=== PATIENT | female | born 1975 | race Caucasian/White ===

== ENCOUNTER 2021-01-19 10:52 | Outpatient (CLI) | payer SELFPAY ==
--- NOTE | ~2021-01-19 | MM_ITS ---
EXAMINATION: MM scrn matti implant BI w olivia HISTORY: Screening mammogram TECHNIQUE: Craniocaudal and mediolateral oblique 3-D tomosynthesis images with implant displacement a nd synthetic 2-D images were generated. Craniocaudal and mediolateral oblique views of the breasts wi thout implant displacement were obtained using full field digital mammography. CAD analysis was submi tted and interpreted. COMPARISON: No prior mammogram is available for comparison at this institution. BREAST PARENCHYMAL COMPOSITION: The breasts are heterogeneously dense, which may obscure small masses . FINDINGS: Status post bilateral augmentation mammoplasty. Possible 7 mm outer left breast circumscribed mass (craniocaudal Tomosynthesis image 16/41). Questionable 6 mm circumscribed mass central left breast slightly medial to the mid sagittal plane (c raniocaudal Tomosynthesis image 21/41). No suspicious mass of either breast is noted otherwise. Minimal benign calcification. No malignant ca lcification in either breast is evident. No skin thickening or retraction. IMPRESSION: 1. Possible left 6 and 7 mm breast masses 2. Diagnostic left mammogram and left breast ultrasound examination are recommended. BI-RADS Category 0: Incomplete: Needs additional imaging evaluation. Reviewed, dictated and finalized at location A. IMPRESSION: 1. Possible left 6 and 7 mm breast masses 2. Diagnostic left mammogram and left breast ultrasound examination are recomme nded. BI-RADS Category 0: Incomplete: Needs additional imaging evaluation.
== END 2021-01-19 10:53 | disposition home or self-care (01) ==
LOC: ANHIMG 10:57
PROVIDERS: Visit Provider Obstetrics & Gynecology
DX: Z12.31 Encounter for screening mammogram for malignant neoplasm of breast (principal); R92.8 Other abnormal and inconclusive findings on diagnostic imaging of breast
CPT/HCPCS: 77063; 77067

== ENCOUNTER 2021-02-14 13:18 | Outpatient (CLI) | payer OTHER, SELFPAY ==
--- NOTE | ~2021-02-14 | MMUS_ITS ---
EXAMINATION: MM diag matti implant LT w olivia, US breast LT limited HISTORY: Left breast asymmetries on screening mammogram TECHNIQUE: Craniocaudal, mediolateral, and mediolateral oblique 3-D tomosynthesis images with implant displacement of the left breast were performed and synthetic 2-D images were generated. Mediolatera l view of the left breast without implant displacement were obtained using full field digital mammogr aphy. CAD analysis was submitted and interpreted. High resolution limited left breast ultrasound was performed. COMPARISON: 01/19/2021, 11/17/2016, 11/10/2016 BREAST PARENCHYMAL COMPOSITION: The breasts are heterogeneously dense, which may obscure small masses . FINDINGS: MAMMOGRAPHIC FINDINGS: There is a return to baseline fibroglandular appearance with spot compression of the left breast in t he area questioned on screening mammogram. No suspicious mass, calcification, or architectural distor tion are identified. ULTRASOUND: There is 7 mm x 2 mm bilobed cyst at the 1:30 location 3 cm from the nipple. A 7 mm x 3 mm oval, circ umscribed, parallel, hypoechoic mass with posterior acoustic enhancement and no internal vascularity at the 2:00 location 3 cm from the nipple. IMPRESSION: 1. Probably benign sonographically detected left breast mass at the 2:00 location. 2. Recommend 6 month follow-up targeted left breast ultrasound. BI-RADS category 3, probably benign findings. Reviewed, dictated and finalized at location A. IMPRESSION: 1. Probably benign sonographically detected left breast mass at the 2:00 locati on. 2. Recommend 6 month follow-up targeted left breast ultrasound. BI-RADS category 3, probably benign findings.
== END 2021-02-14 13:19 | disposition home or self-care (01) ==
LOC: ANHIMG 13:25
PROVIDERS: Visit Provider Obstetrics & Gynecology
DX: R91.8 Other nonspecific abnormal finding of lung field (principal)
CPT/HCPCS: 76642; 77061; 77065; G0279

== ENCOUNTER 2021-02-22 12:39 | Outpatient (CLI) | payer OTHER, SELFPAY ==
[2021-02-22 13:11] LABS: Hematocrit 41.7 % (37.0-47.0); Hemoglobin 13.9 g/dL (12.0-15.0); Mean Corpuscular HGB Conc 33.3 g/dl (32-36); Mean Corpuscular Hemoglobin 29.4 pg (26-34); Mean Corpuscular Volume 88.2 fl (80-100); Mean Platelet Volume 10.2 fl (7.4-10.4); Platelet Count Result 240 k/mm3 (150-375); Red Blood Count 4.73 M/mm3 (4.2-5.4); Red Cell Distribution Width 11.9 % (11.5-14.5); White Blood Count 7.2 K/mm3 (4.5-10.0)
[2021-02-22 13:25] LABS: Alanine Aminotransferase 17 U/L (4-35); Albumin Level 4.5 g/dL (3.5-5.1); Alkaline Phosphatase 49 U/L (38-126); Anion Gap 8 mmol/L (8-16); Aspartate Amino Transferase 22 U/L (14-36); Bilirubin,Total 0.8 mg/dL (0.2-1.3); Blood Urea Nitrogen 12 mg/dL (7-17); Calcium 9.2 mg/dL (8.4-10.2); Carbon Dioxide 23 mmol/L (22-30); Chloride 107 mmol/L (98-107); Estimated Glomerular Filt Rate > 60; Glucose 95 mg/dL (65-110); Potassium 3.7 mmol/L (3.4-5.0); Sodium 138 mmol/L (137-145)
[2021-02-22 13:28] LABS: CRP < 0.5 mg/dL (<1.0)
[2021-02-22 13:56] LABS: Thyroid Stimulating Hormone 0.582 uIU/mL (0.465-4.680)
[2021-02-22 14:01] LABS: Erythrocyte Sedimentation Rate 8 mm/hr (0-20)
[2021-02-25 13:01] LABS: Tissue Transglutaminase IgG Ab 1 U/mL (<6)
[2021-02-28 00:13] LABS: Tissue Transglutaminase IgA Ab 1 U/mL (<4)
== END 2021-02-22 12:40 | disposition home or self-care (01) ==
PROVIDERS: Visit Provider Nurse Practitioner Family
DX: R19.7 Diarrhea, unspecified (principal)
CPT/HCPCS: 36415; 80053; 83516; 84443; 85027; 85652; 86140

== ENCOUNTER 2021-02-23 12:49 | Outpatient (CLI) | payer OTHER, SELFPAY | END 2021-02-23 12:50 | disposition home or self-care (01) | PROVIDERS: Visit Provider Nurse Practitioner Family | DX: R19.7 Diarrhea, unspecified (principal) | CPT/HCPCS: 87045; 87177; 87209; 87427; 89055 ==

== ENCOUNTER 2021-04-10 09:09 | Outpatient (CLI) | payer OTHER, SELFPAY ==
--- NOTE | ~2021-04-10 | XR_ITS ---
XR abdomen/kub 1V DATE: 04/10/2021 09:31 INDICATION: Microscopic hematuria TECHNIQUE: AP projection, 2 views COMPARISON: None FINDINGS: No apparent urinary tract calcified calculus is noted. Noncontrast CT abdomen pelvis examin ation is more sensitive for detection of urinary tract calculi. No visceromegaly is detected. The psoas shadows are intact. The bowel gas pattern is unremarkable, wi thout evidence of obstruction. Included skeletal structures are unremarkable. IMPRESSION: No significant abnormality Reviewed, dictated and finalized at [facility]. Reviewed, dictated and finalized at location B. IMPRESSION: No significant abnormality
== END 2021-04-10 09:10 | disposition home or self-care (01) ==
LOC: ANHIMG 09:13
PROVIDERS: Visit Provider Urology
DX: R31.29 Other microscopic hematuria (principal)
CPT/HCPCS: 74018

== ENCOUNTER → 2022-07-28 09:01 | Outpatient (CLI) | payer SELFPAY ==
--- NOTE | ~2022-07-28 | US_ITS ---
EXAMINATION: US pelvic complete w TV DATE: 07/28/2022 09:31 INDICATION: Leiomyoma of uterus, unspecified. TECHNIQUE: Multiple transabdominal and transvaginal sonographic images of the pelvis were obtained. COMPARISON: None. FINDINGS: TRANSABDOMINAL ULTRASOUND: The uterus measures 9.3 x 5.4 x 5.9 cm. There is no free fluid in the pelvis. TRANSVAGINAL ULTRASOUND: The endometrial complex measures 8 mm in thickness. There is a 2.2 cm subserosal fibroid posteriorly. There is a 2.0 cm nabothian cyst in the cervix. The right ovary is not visualized. The left ovary me asures 3.0 x 2.9 x 3.1 cm. IMPRESSION: 1. 2.2 cm uterine fibroid. Reviewed, dictated and finalized at location A. FILLER IMPRESSION: 1. 2.2 cm uterine fibroid.
== END ==
PROVIDERS: PCP Obstetrics & Gynecology; Visit Provider Obstetrics & Gynecology
DX: D25.9 Leiomyoma of uterus, unspecified (principal)
CPT/HCPCS: 76830; 76856

== ENCOUNTER 2022-08-23 00:44 | Day surgery (SDC) | payer BC, SELFPAY ==
[2022-08-23] VITALS (31 sets, daily range): BP systolic 84–130; BP diastolic 46–90; PULSE 51–92; RESP 10–20; TEMP 36.6–37; O2SAT 94–100
--- NOTE | ~2022-08-23 | CT_ITS ---
EXAMINATION: CT abdomen pelvis w con DATE: 08/23/2022 03:06 INDICATION: Epigastric abdominal pain TECHNIQUE: Computed tomography (CT) of the abdomen and pelvis was performed with 100 CC Omnipaque 350 intravenous contrast. Automated exposure control and iterative reconstruction technique were employe d. Exam dose: 273.03 mGy-cm total exam DLP. COMPARISON: 07/28/2022 FINDINGS: Normal heart size. No pericardial or pleural effusion. The liver, gallbladder, bile ducts, pancreas and pancreatic duct are unremarkable. Indeterminate approximately 1.2 cm area of diminished attenuation at the periphery of the superolater al aspect of the spleen. Normal morphology of the adrenal glands. No renal mass lesion or urinary tract calculus or hydrourete ronephrosis is detected. Normal caliber of the abdominal aorta. No intraperitoneal or retroperitoneal or pelvic mass lesion or adenopathy or ascites. Retroverted uterus. 1.4 cm cyst at lesion, corresponding to a uterine cervical nabothian cyst demonstrated on 07/28/2022 p elvic ultrasound examination. Bilateral prominent adnexal veins. Possible blind ending mildly dilated appendix is identified in the right pelvic area but this is not certain. Clinical correlation is advised Skeletal structures are unremarkable. . IMPRESSION: Possible acute appendicitis Reviewed, dictated and finalized at [facility]. Reviewed, dictated and finalized at location A. ACCOUNT REPRESENTATIVE IMPRESSION: Possible acute appendicitis
--- NOTE | 2022-08-23 01:16 | ED.GENADULT ---
HPI - General Adult General Chief complaint: Abdominal Pain <Rocael Osborne MD - Last Filed: 08/23/22 07:35> Stated complaint: abd pain <Rocael Osborne MD - Last Filed: 08/23/22 07:35> Time Seen by Provider: 08/23/22 01:02 <Rocael Osborne MD - Last Filed: 08/23/22 07:35> History of Present Illness HPI narrative: Patient 46-year-old female who presents emergency department with chief complaint of abdominal pain. Patient reports that she started having pain in the epigastric and periumbilical region around 3 PM today and the patient reports she is attempted multiple medications [id number] to try to counteract the pain, but has had no improvement in her symptoms. The patient reports she is had nausea no vomiting denies diarrhea. The patient reports just history of a D&C from abdominal surgery perspective. The patient does report that she has irregular periods but has been told that she is perimenopausal. Patient reports symptoms or not improved by anything. <Rocael Osborne MD - Last Filed: 08/23/22 07:35> Related Data Home medications: Home Medications Medication Instructions Recorded Confirmed calcium carbonate 600 mg calcium 600 mg PO DAILY 01/15/22 01/15/22 (1,500 mg) tablet (Calcium) collagen .Route 01/15/22 01/15/22 magnesium 200 mg tablet 200 mg PO DAILY 01/15/22 01/15/22 mecobalamin (vitamin B12) 1,000 1,000 mcg PO DAILY 01/15/22 01/15/22 mcg chewable tablet multivitamin 1 tablet PO DAILY 01/15/22 01/15/22 <Rocael Osborne MD - Last Filed: 08/23/22 07:35> Allergies/adverse reactions: Allergies Allergy/AdvReac Type Severity Reaction Status Date / Time adhesive tape AdvReac Rash Verified 08/23/22 06:51 <Rocael Osborne MD - Last Filed: 08/23/22 07:35> Review of Systems Review of Systems: A 10 system review of systems was completed on the patient and is negative except for what is stated in the HPI. Nursing and ancillary documentation was reviewed. <Rocael Osborne MD - Last Filed: 08/23/22 07:35> PMFSH Past Medical History Medical History: Medical History Diarrhea History of vaginal delivery x 3 <Rocael Osborne MD - Last Filed: 08/23/22 07:35> Surgical History Surgical History: Surgical History History of breast augmentation breast implants 08/2021, breast reduction History of dilation and curettage 1995 History of endometrial ablation 2018 <Rocael Osborne MD - Last Filed: 08/23/22 07:35> Family History Family History: Family History Grandparent Heart disease Malignant neoplasm of prostate <Rocael Osborne MD - Last Filed: 08/23/22 07:35> Social History Social History: Social History Smoking status: Former smoker Alcohol intake: current Substance use: never <Rocael Osborne MD - Last Filed: 08/23/22 07:35> Exam Narrative: GENERAL: Well-appearing, well-nourished, and in no acute distress. HEAD: Normocephalic, atraumatic. EYES: PERRLA and EOMI. ENT: Nares clear, no rhinorrhea or epistaxis. Mucous membranes moist. NECK: Supple. CHEST: Clear to auscultation. No respiratory distress. HEART: Regular rate and rhythm. No murmur heard. Normal peripheral pulses. ABDOMEN: Soft, tender in the epigastric and periumbilical region, nondistended, normal active bowel sounds. EXTREMITIES: Normal range of motion. No edema. SKIN: Warm, dry, no rash. NEURO: No focal deficits. Alert and oriented x3. PSYCH: Normal mood and affect. <Rocael Osborne MD - Last Filed: 08/23/22 07:35> Course Course Emergency Course: I discussed case with Dr. Clemons. Patient will
[2022-08-23] MEDS: SODIUM CHLORIDE 0.9% IV 1,000 ML 999 ML IV CONT ×3 (01:24→07:37)
[2022-08-23] MEDS: ONDANSETRON INJ 4 MG/2 ML VIAL IV PUSH ×2 (01:24→11:33)
[2022-08-23] MEDS: HYDROmorphone HCL INJ (*CRX) 1 MG/ML SYR IV PUSH ×2 (01:24→03:53)
[2022-08-23 02:24] LABS: Basophils Percent Auto 0.2 % (0.2-1.2); Eosinophils Percent Auto 0.1 % (0-4.4); Hematocrit 35.1 % (37.0-47.0); Hemoglobin 11.8 g/dL (12.0-15.0); Immature Granulocyte Absolute 0.02 K/mm3 (0.00-0.031); Immature Granulocyte Percent A 0.2 % (0-0.5); Lymphocytes Absolute Auto 1.82 K/mm3 (0.9-3.2); Mean Corpuscular HGB Conc 33.6 g/dl (32-36); Mean Corpuscular Hemoglobin 28.9 pg (26-34); Monocytes Absolute Auto 0.5 K/mm3 (0.1-0.6); Monocytes Percent Auto 4.7 % (2.6-8.5); Neutrophils Absolute Auto 7.2 K/mm3 (1.3-6.7); Neutrophils Percent Auto 75.8 % (45.5-73.1); Platelet Count Result 207 k/mm3 (150-375); Red Blood Count 4.08 M/mm3 (4.2-5.4); Red Cell Distribution Width 12.1 % (11.5-14.5); White Blood Count 9.6 K/mm3 (4.5-10.0)
[2022-08-23 02:37] LABS: Alanine Aminotransferase 20 U/L (6-35); Albumin Level 4.2 g/dL (3.5-5.1); Alkaline Phosphatase 36 U/L (38-126); Anion Gap 6 mmol/L (8-16); Aspartate Amino Transferase 22 U/L (14-36); Bilirubin,Total 0.4 mg/dL (0.2-1.3); Blood Urea Nitrogen 15 mg/dL (7-17); Calcium 8.5 mg/dL (8.4-10.2); Carbon Dioxide 26 mmol/L (22-30); Chloride 106 mmol/L (98-107); Estimated CRCL calculation 91 ml/min; Estimated Glomerular Filt Rate > 60; Glucose 112 mg/dL (65-110); Lipase 49 U/L (23-300); Potassium 3.2 mmol/L (3.4-5.0); Sodium 138 mmol/L (137-145)
[2022-08-23 03:00] LABS: Appearance Urine Cloudy (Clear); Bacteria Urine None Seen /hpf; Bilirubin Urine Negative (Negative); Blood Urine 2+ (Negative); Color Urine Yellow (Yellow); Glucose Urine UA Negative (Negative); Ketones Urine Negative (Negative); Leukocyte Esterase Ur Negative LEU/UL (Negative); Nitrate Urine Negative (Negative); Non Pathogenic Casts 0-2; Protein Urine Negative (Negative); RBC Urine 21-50 /hpf (0-2); Squamous Epithelial Cell Urine None seen /hpf (Few); Urobilinogen Urine 0.2 mg/dL (<2.0); WBC Urine 0-5 /hpf
[2022-08-23 03:18] LABS: Add Urine Microscopic? YES
--- NOTE | 2022-08-23 07:10 | PC.NURSE ---
Report given to Lupis Lawson RN
--- NOTE | 2022-08-23 08:06 | WPDANESEPP ---
Anes - Eval Pre Procedure Procedure: Laparoscopic appendectomy Date/Time: 08/23/22 08:06 Surgeon: Deonte Preop Diagnosis: acute appendicitis Pre Op Diagnosis: abd pain Patient Data Age: 46 Gender: F Height: 1.65 m Weight: 58.97 kg Last Vital Signs Temp 98.2 F 08/23/22 07:38 Pulse 78 08/23/22 07:38 Resp 16 08/23/22 07:38 BP 96/67 L 08/23/22 07:38 Pulse Ox 100 08/23/22 07:38 O2 Del Method Room Air 08/23/22 00:47 Allergies Allergy/AdvReac Type Severity Reaction Status Date / Time adhesive tape AdvReac Rash Verified 08/23/22 06:51 Home Medications Medication Instructions Recorded Confirmed Type calcium carbonate 600 mg calcium 600 mg PO DAILY 01/15/22 01/15/22 History (1,500 mg) tablet (Calcium) collagen .Route 01/15/22 01/15/22 History magnesium 200 mg tablet 200 mg PO DAILY 01/15/22 01/15/22 History mecobalamin (vitamin B12) 1,000 1,000 mcg PO DAILY 01/15/22 01/15/22 History mcg chewable tablet multivitamin 1 tablet PO DAILY 01/15/22 01/15/22 History Laboratory Tests 08/23/22 08/23/22 08/23/22 02:15 02:15 02:45 WBC 9.6 K/mm3 K/mm3 (4.5-10.0) RBC 4.08 M/mm3 L M/mm3 (4.2-5.4) Hgb 11.8 g/dL L g/dL (12.0-15.0) Hct 35.1 % L % (37.0-47.0) MCV 86.0 fl fl (80-100) MCH 28.9 pg pg (26-34) MCHC 33.6 g/dl g/dl (32-36) RDW 12.1 % % (11.5-14.5) Plt Count 207 k/mm3 k/mm3 (150-375) MPV 10.0 fl fl (7.4-10.4) Immature Gran % (Auto) 0.2 % % (0-0.5) Neut % (Auto) 75.8 % H % (45.5-73.1) Lymph % (Auto) 19.0 % % (18.3-44.2) [place] % (Auto) 4.7 % % (2.6-8.5) Eos % (Auto) 0.1 % % (0-4.4) Baso % (Auto) 0.2 % % (0.2-1.2) Lymph # (Auto) 1.82 K/mm3 K/mm3 (0.9-3.2) [place] # (Auto) 0.5 K/mm3 K/mm3 (0.1-0.6) Eos # (Auto) 0.0 K/mm3 K/mm3 (0-0.3) Baso # (Auto) 0.0 K/mm3 K/mm3 (0.0-0.1) Abs Immat Gran (auto) 0.02 K/mm3 K/mm3 (0.00-0.031) Absolute Neuts (auto) 7.2 K/mm3 H K/mm3 (1.3-6.7) Absolute Nucleated RBC 0.0 K/mm3 K/mm3 (0.0-0.012) Nucleated RBC % 0.0 % % (0.0-0.2) Sodium 138 mmol/L mmol/L (137-145) Potassium 3.2 mmol/L L mmol/L (3.4-5.0) Chloride 106 mmol/L mmol/L (98-107) Carbon Dioxide 26 mmol/L mmol/L (22-30) Anion Gap 6 mmol/L L mmol/L (8-16) BUN 15 mg/dL mg/dL (7-17) Creatinine 0.60 mg/dL L mg/dL (0.7-1.0) Estim Creat Clear Calc 91 ml/min ml/min Estimated GFR > 60 (59 - ) Glucose 112 mg/dL H mg/dL (65-110) Calcium 8.5 mg/dL mg/dL (8.4-10.2) Total Bilirubin 0.4 mg/dL mg/dL (0.2-1.3) AST 22 U/L U/L (14-36) ALT 20 U/L U/L (6-35) Alkaline Phosphatase 36 U/L L U/L (38-126) Total Protein 7.0 g/dL g/dL (6.3-8.2) Albumin 4.2 g/dL g/dL (3.5-5.1) Lipase 49 U/L U/L (23-300) Urine Color Yellow (Yellow) Urine Appearance Cloudy H (Clear) Urine pH 7.0 (5.0-9.0) Ur Specific [place] 1.020 (1.001-1.035) Urine Protein Negative mg/dL mg/dL (Negative) Urine Glucose (UA) Negative mg/dL mg/dL (Negative) Urine Ketones Negative mg/dL mg/dL (Negative) Ur Blood (Man) 2+ H (Negative) Urine Nitrate Negative (Negative) Urine Bilirubin Negative (Negative) Urine Urobilinogen 0.2 mg/dL mg/dL (<2.0) Leukocyte Esterase Rfl Negative TONIO/UL TONIO/UL (Negative) Urine RBC 21-50 /hpf H /hpf (0-2) Urine WBC 0-5 /hpf /hpf Ur Squamous Epith Cells None seen /hpf /hpf (Few) Urine Bacteria None seen /hpf /hpf Urine Casts 0-2 : patient
[2022-08-23] MEDS: LACTATED RINGERS 1,000 ML 30 ML IV CONT ×2 (09:30→12:15)
--- NOTE | 2022-08-23 09:35 | P.PNAN_ITS ---
Anes - Eval Final PreProcedure Day of Procedure 08/23/22 09:35 Patient weight: normal Heart: regular rate and rhythm Lungs: clear to auscultation Airway: Mallampati scale class II Neurological: alert and oriented Last oral intake: >/= 8 hours ASA classification: II Emergent: no Anesthetic plan: proceed Anesthesia type and monitoring: general ETT and standard monitoring Results Review: All pre-operative results and documents have been reviewed as part of the pre- operative evaluation. Informed Consent: The patient's anesthetic plan and its attendant risks and benefits were discussed with the patient/family/POA. Questions were solicited and answers provided to the satisfaction of the patient/family/POA.
[2022-08-23] MEDS: BUPIVACAINE/EPINEPHRINE 0.5% 10 ML VIAL 20 ML INFILTRATE (10:17)
--- NOTE | 2022-08-23 10:24 | W.PM.PROC2 ---
Procedure Note - Detailed Date of Procedure 08/23/22 Pre-op Diagnosis Appendicitis Post-op Diagnosis Same Procedure Performed Laparoscopic appendectomy Surgeon Bean Clemons MD Dandy Operator Guilherme MENDOZA Anesthesia General and Local Indications Patient started having upper abdominal pain and nausea yesterday afternoon. This got worse and she came to the emergency room. Eventually the pain moved to the right lower quadrant. White blood cell count was 9600. CT scan showed acute appendicitis. She is taken to surgery now for laparoscopic appendectomy. Findings Acute non perforated appendicitis Description of Procedure Patient was taken to surgery and induced into general anesthesia. The abdomen is prepped and draped. Trocars were placed in usual fashion using [employer] optical trocars and a 5 mm camera. Patient was placed in Trendelenburg. We were able to find the appendix. It was wrapped in some inflammatory adhesions. Once the adhesions were taken down the appendix was obviously inflamed particularly it in its midportion and distal aspect. The base looked fairly normal. We then dissected in the mesoappendix and cauterized the appendiceal artery thoroughly. It was dissected and divided. We then dissected the rest of the mesoappendix and skeletonized the appendix at its base. Appendix was then ligated at its base with a Vicryl endoloop. It was amputated just above the ligature and the mucosa of the appendiceal stump was cauterized. The appendix was placed immediately in an Endo-Catch bag. It was extricated through the 10 11 left lower quadrant port. We replaced the 10 11 trocar and reviewed the areas of dissection in the appendiceal stump. All looked good. There was no evidence of bleeding or other problems. We then evacuated CO2 and removed the trocar sleeves. Skin wounds were closed with subcuticular 4-0 Monocryl skin suture. Wounds were dressed with Exofin surgical adhesive. The patient was awakened and taken to recovery in good condition. Sponge and needle counts were correct x2. Estimated Blood Loss -5 Drains No Packing No Pathology Yes (Appendix) Complications No immediate complications Condition Stable Disposition PACU [facility] Billing Surgery - Charge Forward: Surgery Billing (Laparoscopic appendectomy)
[2022-08-23] MEDS: oxyCODONE HCL (*CRX) 5 MG TAB IR PO (11:50)
== END 2022-08-23 12:49 | disposition home or self-care (01) ==
LOC: ANHED 07:51 → ANHSURGERY 09:17
PROVIDERS: Emergency Medicine; Emergency Provider Emergency Medicine; PCP Obstetrics & Gynecology; Visit Provider Surgery
PROC: 0DTJ4ZZ Resection of Appendix, Percutaneous Endoscopic Approach (ICD-10-PCS; CPT 44970; principal; 2022-08-23 09:00)
DX: K35.80 Unspecified acute appendicitis (principal); Z87.891 Personal history of nicotine dependence
CPT/HCPCS: 44970; 36415; 74177; 80053; 81001; 81025; 83690; 85025; 88304; 96361; 96365; 96367; 96375; 99285; A9270; J0131; J0330; J1170; J2250; J2405; J2543; J2704; J2710; J3010; J7030; J7120; Q9967

== ENCOUNTER 2022-09-19 14:32 | Outpatient (CLI) | payer BC, SELFPAY ==
--- NOTE | 2022-08-23 08:32 | PM.SD2 ---
Same Day Admit/Disch: HPI History of Present Illness Chief complaint: Abdominal pain Narrative: Vero Bolton is a 46 year old female who began having some upper midline abdominal pain yesterday afternoon. The pain moved to the right lower quadrant. She came to the emergency room where she was noted to have tenderness in the right lower quadrant. Her white blood cell count was 9600. She had a CT scan which showed a 10 mm fluid-filled appendix with periappendiceal stranding consistent with early acute appendicitis. She is taken to surgery now for laparoscopic appendectomy. [facility] Past Medical History Medical History Diarrhea History of vaginal delivery x 3 Surgical History Surgical History History of breast augmentation breast implants 08/2021, breast reduction History of dilation and curettage 1995 History of endometrial ablation 2018 Family History Family History Grandparent Heart disease Malignant neoplasm of prostate Social History Social History Smoking status: Former smoker Alcohol intake: current Substance use: never Same Day Admit/Disch: Med Pre-admit Medications Home Medications Medication Instructions Recorded Confirmed Type calcium carbonate 600 mg calcium 600 mg PO DAILY 01/15/22 01/15/22 History (1,500 mg) tablet (Calcium) collagen .Route 01/15/22 01/15/22 History magnesium 200 mg tablet 200 mg PO DAILY 01/15/22 01/15/22 History mecobalamin (vitamin B12) 1,000 1,000 mcg PO DAILY 01/15/22 01/15/22 History mcg chewable tablet multivitamin 1 tablet PO DAILY 01/15/22 01/15/22 History ketorolac 10 mg tablet 10 mg PO Q6H 4 days #16 tabs 08/23/22 Rx oxycodone-acetaminophen 5 mg-325 0.5 - 1 tablet PO Q6H PRN pain #10 08/23/22 Rx mg tablet tabs Exam Const: General: comfortable, no acute distress, alert and awake HENMT: Head: normocephalic and atraumatic Mouth: Yes Normal oral and palatal mucosa present Eyes: Conjunctivae: conjunctivae normal Pupils: Equal, round and reactive pupils present EOM: EOMs intact bilaterally Neck: Neck: normal visual inspection, no lymphadenopathy and nontender Resp: Effort & Inspection: normal respiratory effort Auscultation: clear to auscultation bilaterally Cardio: Rate: regular rate Rhythm: regular rhythm Heart sounds: no gallops, no murmurs and no rubs GI: Inspection: non-distended and no scars GI Palp: Yes Soft to palpation, Yes Tenderness to palpation present (GI) (Right lower quadrant with guarding), Yes Guarding due to palpation present (GI), No Hepatomegaly present, No Splenomegaly present, No Hernia present, No Palpable mass present and No Ascites present Auscultation: normal bowel sounds Skin: Lesions: no lesions Rashes: no rashes Neuro: General: no focal motor deficits and CN's II-XI intact bilaterally Cranial nerves: Yes Equal, round and reactive pupils present, Yes Bilaterally intact EOM present, Yes facial symmetry and Yes Midline tongue present Speech: normal speech Motor exam (neuro): 5/5 motor strength present throughout and Motor abnormalities not present Extrem: General: no clubbing, cyanosis or edema and edema Psych: Affect: normal affect Thought process: Normal thought process present Insight: Good insight present (Psych) DS: Data Imaging Attestation: I personally reviewed and interpreted this imaging study as follows: (CT scan abdomen and pelvis) My impression: Early appendicitis Radiologist's impression: Not yet formally read. Tele radiology suggests acute appendicitis. DS: Summary Time Spent with Patient Time attestation: Total time spent providing and/or coordinating discharge services: DS: Admitting Diagnosis Discharge Date 08/23/2022 Admitting Diagnosis Early acute appendicit
--- NOTE | 2022-08-23 08:37 | WPDHPUPDATE1 ---
History and Physical Update Update Date/Time: 08/23/22 08:37 History and Physical has been reviewed, including an updated exam of the patient. There are NO changes in the patient's condition. Risks, benefits, and alternatives have been discussed and questions answered. Patient agrees to proceed with procedure.
--- NOTE | ~2022-09-19 | MM_ITS ---
EXAMINATION: MM screening matti BI w olivia HISTORY: Screening TECHNIQUE: Craniocaudal and mediolateral oblique 3-D tomosynthesis images were obtained and synthetic 2-D images were generated. CAD analysis was submitted and interpreted. COMPARISON: No prior mammogram is available for comparison at this institution. BREAST PARENCHYMAL COMPOSITION: The breasts are heterogeneously dense, which may obscure small masses . FINDINGS: There is distortion inferiorly in both breasts, consistent with breast implant explantation . There is no evidence of suspicious mass, calcification, or architectural distortion to suggest yazan gnancy in either breast. There has been no suspicious interval change. IMPRESSION: 1. No mammographic evidence of malignancy. 2. Recommend routine screening mammography in one year. BI-RADS Category 1: Negative Reviewed, dictated and finalized at location A.
== END 2022-09-19 14:33 | disposition home or self-care (01) ==
LOC: ANHIMG 14:34
PROVIDERS: PCP Obstetrics & Gynecology; Visit Provider Obstetrics & Gynecology
DX: Z12.31 Encounter for screening mammogram for malignant neoplasm of breast (principal)
CPT/HCPCS: 77063; 77067

== ENCOUNTER 2023-04-27 00:30 | Day surgery (SDC) | payer BC, SELFPAY ==
[2023-04-15 13:50] VITALS: BMI 21.5
[2023-04-27 06:44] VITALS: BP 105/67; PULSE 82; RESP 18; TEMP 36.2; O2SAT 98
[2023-04-27] MEDS: LACTATED RINGERS 1,000 ML 150 ML IV CONT (07:02)
--- NOTE | 2023-04-27 07:47 | PM.HPGS ---
History of Present Illness History of Present Illness Consent: Risks, benefits, and alternatives have been discussed and questions answered. Patient agrees to proceed with procedure. Chief complaint: neoplasm screening Narrative: Vero Bolton is a 47 year old female here for screening colonoscopy, last one about 13 years ago for GI issues Review of Systems Constitutional: Constitutional: Denies headache(s) and Denies weakness Eyes: Eyes: Denies blurry vision ENT: Reports Normal hearing present, Denies headache(s) and Denies neck pain Cardiovascular: Cardiovascular: Denies chest pain and Denies dyspnea Respiratory: Respiratory: Denies dyspnea Gastrointestinal: Gastrointestinal: Reports no additional gastrointestinal complaints Genitourinary: Genitourinary: Denies dysuria Musculoskeletal: Musculoskeletal: Denies neck pain Integumentary/Breasts: Skin/Breast: Denies dry skin Neurologic: Reports Normal hearing present, Denies headache(s) and Denies weakness Psychiatric: Psychiatric: Denies anxiety Endocrine: Endocrine: Denies change in body appearance Hematologic/Lymphatic: Hematologic/Lymphatic: Denies easy bleeding Allergic/Immunologic: Allergic/Immunologic: Denies urticaria PMFSH Past Medical History Medical History (Updated 04/27/23 @ 07:48 by Mitul Haynes MD) Colon cancer screening Diarrhea History of vaginal delivery x 3 Surgical History Surgical History History of breast augmentation breast implants 08/2021, breast reduction History of dilation and curettage 1996 History of endometrial ablation 2019 History of laparoscopic appendectomy 08/23/2022 - Laparoscopic appendectomy Family History Family History Grandparent Heart disease Malignant neoplasm of prostate Social History Social History Smoking status: Never smoker Alcohol intake: current Drinks per week: 10 Substance use: never Substance use type: does not use Lack of Transportation: No Lack of Food: Never True Current Housing: I Have Housing Concerned About Future Housing: No Difficulty Paying Gas/Electric Bills: Decline to Answer Difficulty Paying for Meds: Decline to Answer Currently Unemployed: No Education: High School Diploma/GED Difficulty w/ Childcare or Family Care: No Living arrangements: with family Occupation/Education: occupation Gender identity (if verbalized by the patient): Female Sexual Orientation (if Verbalized by the Patient): Straight or Heterosexual Spiritual care concerns: No Meds Home Medications and Allergies Home Medications Medication Instructions Recorded Confirmed Type magnesium 200 mg tablet 200 mg PO DAILY 01/15/22 04/15/23 History mecobalamin (vitamin B12) 1,000 1,000 mcg PO DAILY 01/15/22 04/15/23 History mcg chewable tablet multivitamin 1 tablet PO DAILY 01/15/22 04/15/23 History Allergies Allergy/AdvReac Type Severity Reaction Status Date / Time adhesive tape AdvReac Rash Verified 04/27/23 06:44 Vital Signs Vital Signs - 24 hr 04/27/23 06:44 Temperature 97.1 F L Pulse Rate 82 Respiratory Rate 18 Blood Pressure 105/67 Pulse Oximetry 98 Oxygen Delivery Room Air Exam Const: General: comfortable and no acute distress HENMT: Face/Nose/Sinus: Normal nares present Eyes: General: appearance normal, both eyes and all related structures Neck: Neck: no JVD Resp: Auscultation: clear to auscultation bilaterally Cardio: Rate: regular rate Rhythm: regular rhythm GI: Inspection: non-distended GI Palp: Yes Soft to palpation Skin: General skin exam: normal color Neuro: General: gait normal Speech: normal speech Extrem: General: normal to inspection Psych: Mental Status: mental status grossly normal Assessment and Plan As
[2023-04-27 08:01] VITALS: BP 85/52; PULSE 72; RESP 19; O2SAT 100
[2023-04-27 08:11] VITALS: BP 99/64; PULSE 68; RESP 22; O2SAT 100
[2023-04-27 08:21] VITALS: BP 102/69; PULSE 66; RESP 25; O2SAT 100
== END 2023-04-27 08:25 | disposition home or self-care (01) ==
PROVIDERS: Visit Provider Internal Medicine Gastroenterology
PROC: 0DJD8ZZ Inspection of Lower Intestinal Tract, Via Natural or Artificial Opening Endoscopic (ICD-10-PCS; CPT 45378; principal; 2023-04-27 08:00)
DX: Z12.11 Encounter for screening for malignant neoplasm of colon (principal); Z80.42 Family history of malignant neoplasm of prostate
CPT/HCPCS: 45378; J2704; J7120

== ENCOUNTER 2024-08-08 13:54 | Outpatient (CLI) | payer OTHER, SELFPAY ==
--- NOTE | ~2024-08-08 | MM_ITS ---
EXAMINATION: MM screening matti BI w olivia HISTORY: Screening TECHNIQUE: Craniocaudal and mediolateral oblique 3-D tomosynthesis images were obtained and synthetic 2-D images were generated. CAD analysis was submitted and interpreted. COMPARISON: Comparison to multiple prior studies sequentially, with oldest reviewed study dated 01/19. BREAST PARENCHYMAL COMPOSITION: Dense: The breasts are heterogeneously dense, which may obscure small masses FINDINGS: There is no evidence of suspicious mass, calcification, or architectural distortion to sugg est malignancy in either breast. There has been no suspicious interval change. IMPRESSION: 1. No mammographic evidence of malignancy. 2. Recommend routine screening mammography in one year. BI-RADS Category 1: Negative Reviewed, dictated and finalized at location B. ORK RELAY TESTER
--- OUTSIDE RECORDS SUMMARY | 2024-08-08 14:10 | XMS_ITS | Clinical Summary ---
Author Organization [facility] Address [address] [place] [address] Care Team Providers Care Customer Advisor Specialist Name Role Phone Fly Randle MD Primary Care Provider [phone] Fly Randle MD Unavailable [phone] Allergies No known active allergies Medications zolpidem (AMBIEN) 5 MG tablet Take 1 tablet (5 mg total) by mouth nightly as needed. 06/11/2022 Active naproxen (NAPROSYN) 250 MG tablet 2 tablets (500 mg total). Active Family History Medical History Relation Comments Vision loss Mother Glaucoma Relation Status Comments Mother Social History Tobacco Use Types Packs/Day Years Used Date Smoking Tobacco: Former Cigarettes 0.3 3 0 09/20/2001 - 09/20/2004 Passive Smoke Exposure: Past Smokeless Tobacco: Never Tobacco Cessation:Counseling Given: No Comments:Was only a social smoker Alcohol Use Standard Drinks/Week Comments Yes 10 (1 standard drink = 0.6 oz pure alcohol) Performing in bands on weekends PHQ-2 Answer Date Recorded Patient Health Questionnaire-2 Score 0 01/08/2023 Comments No Sex and Gender Information Value Date Recorded Sex Assigned at Not on file Legal Sex Female 4:35 PM CDT Gender Identity Not on file Sexual Orientation Not on file Last Filed Vital Signs Vital Sign Reading Time Taken Comments Blood Pressure 100/62 01/08/2023 10:12 AM CDT Pulse 68 01/08/2023 10:12 AM CDT Temperature 36.4 C (97.6 F) 01/08/2023 10:12 AM CDT Respiratory Rate 18 11/25/2022 10:46 AM CDT Oxygen Saturation 100% 01/08/2023 10:12 AM CDT Inhaled Oxygen Concentration - - Weight 59 kg (130 lb) 01/08/2023 10:12 AM CDT Height 165.1 cm (5' 5 ) 01/08/2023 10:12 AM CDT Body Mass Index 21.63 01/08/2023 10:12 AM CDT Plan of Treatment Health Maintenance Due Date Last Done Comments Cervical Cancer Screening Pa p Smear (Age 30 to 64) Every 3 Years 1976 Colorectal Cancer Screening Colonoscopy (10 Years) 1976 Annual Physical 09/20/1979 Hepatitis C 1994 DTaP, Tdap and Td Vaccines ( 1 - Tdap) 09/20/1995 Hepatitis B Vaccines (1 of 3 - 19+ 3-dose series) 09/20/1995 Cervical Cancer Screening Pa p with HPV Testing (Age 30 to 64) Every 5 Years 2006 Cervical Cancer Screening wi th HPV 2006 Mammogram Screening 2016 PHQ-2 (Physician [place]) 01/09/2024 01/08/2023 COVID-19 Vaccine (3 - 2023-2 5 season) 2024 10/22/2020, 10/01/2020 Influenza Adult (#1) 2024 PHQ-2 (Physician [place]) 06/29/2024 01/08/2023 Meningococcal B Vaccine Aged Out No l onger eligible based on patient's age to complete this topic Meningococcal Vaccine Aged Out No tim dania eligible based on patient's age to complete this topic Pneumococcal Vaccine: Pediatrics (0 to 5 Years) and At-Risk Patients (6 to 64 Years) Aged Out No longer eligible b ased on patient's age to complete this topic RSV Immunizations Under 20 Months Aged Out No longer eligible b ased on patient's age to complete this topic Insurance [facility] Care Teams Customer Advisor Specialist Relationship Specialty Start Date End Date Fly Randle MD [address] [place] [id number] PCP - General FAMILY PRACTICE 11/12/22 Fly Randle MD [address] [place] [id number] 11/12/22
== END 2024-08-08 13:55 | disposition home or self-care (01) ==
LOC: ANHIMG 13:56
PROVIDERS: Visit Provider Obstetrics & Gynecology
DX: Z12.31 Encounter for screening mammogram for malignant neoplasm of breast (principal)
CPT/HCPCS: 77063; 77067

== ENCOUNTER 2025-04-14 10:33 | Outpatient (CLI) | payer OTHER, SELFPAY ==
[2025-04-14 11:16] LABS: Hematocrit 40.0 % (37.0-47.0); Hemoglobin 13.1 g/dL (12.0-15.0); Mean Corpuscular HGB Conc 32.8 g/dl (32-36); Mean Corpuscular Hemoglobin 29.1 pg (26-34); Mean Corpuscular Volume 88.9 fl (80-100); Platelet Count Result 233 k/mm3 (150-375); Red Blood Count 4.50 M/mm3 (4.2-5.4); White Blood Count 5.8 K/mm3 (4.5-10.0)
--- OUTSIDE RECORDS SUMMARY | 2025-04-14 11:25 | XMS_ITS | Clinical Summary ---
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 [address] [address] [place] [address] Health Maintenance Due Date Last Done Comments [...] wi th HPV 2006 Mammogram Screening 2016 COVID-19 Vaccine (3 - 2024-2 6 season) 2025 10/22/2020, 10/01/2020 Influenza Adult (#1) 2025 Hepatitis A Vaccines Aged Out No long er eligible based on patient's age to complete this topic Meningococcal B Vaccine Aged Out No l onger eligible based on patient's age to complete this topic Meningococcal Vaccine Aged Out No tim dania eligible based on patient's age to complete this topic Pneumococcal Vaccine: Pediatrics (0 to 5 Years) and At-Risk Patients (6 to 49 Years) Aged Out No longer eligible b ased on patient's age to complete this topic RSV Immunizations Under 20 Months Aged Out No longer eligible b ased on patient's age to complete this topic Care Teams Enterprise Integration Architect Relationship Specialty Start Date End Date Fly Randle MD [facility] [place] [address] PCP - General FAMILY PRACTICE 04/11/25
[2025-04-14 11:38] LABS: Alanine Aminotransferase 16 U/L (6-35); Albumin Level 4.3 g/dL (3.5-5.1); Alkaline Phosphatase 38 U/L (38-126); Anion Gap 5 mmol/L (4-12); Aspartate Amino Transferase 26 U/L (14-36); Bilirubin,Total 0.7 mg/dL (0.2-1.3); Blood Urea Nitrogen 16 mg/dL (7-17); Calcium 8.8 mg/dL (8.4-10.2); Carbon Dioxide 28 mmol/L (22-30); Chloride 105 mmol/L (98-107); Cholesterol 216 mg/dL (0-200); Estimated Glomerular Filt Rate > 60; Glucose 91 mg/dL (65-110); HDL Direct 77 mg/dL; Potassium 3.6 mmol/L (3.4-5.0); Sodium 138 mmol/L (137-145); Total Protein 7.2 g/dL (6.3-8.2); Triglycerides 48 mg/dL (<150)
== END 2025-04-14 10:34 | disposition home or self-care (01) ==
PROVIDERS: PCP Family Medicine; Visit Provider Family Medicine
DX: Z00.00 Encounter for general adult medical examination without abnormal findings (principal); R53.83 Other fatigue
CPT/HCPCS: 36415; 80053; 80061; 85027